=== PATIENT | female | born 1990 | race Caucasian/White ===

== ENCOUNTER → 2020-03-30 | Day surgery (SDC) | payer OTHER ==
[~2020-03-30] MED LIST: LARIN 1.5 MG-31 EACH PO; MINOCYCLINE 5050 M1 PO; NORCO 5-325 TA1 EAC1 PO
[2020-03-30 10:50] LABS: HEMATOCRIT 42.1 % (37.0-47.0)
--- NOTE | 2020-03-31 15:08 | PATH ---
[facility] [address] [place] [address] PATHOLOGY RPT PROCEDURE Name: ERUM NEAL Room: [facility].#: [id number] Admission: 03/30/20 Date of : 86 Discharge: Report #: [id number] Path Case #: [id number] [facility] Accession Number: [id number] . 01 Material submitted: . elbow - LEFT ELBOW MASS. Modifiers: left . 02 Diagnosis: Left elbow mass: - Nodular hemangioma. See comment. (JAMEL:guille; 03/31/2020) [facility] 03/31/2020 [facility]9 Local . 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 (JAMEL:guille; 03/31/2020) . 02 Electronically signed: . Xu Reyna MD, Pathologist NPI- [id number] . 01 Gross description: . The specimen is received in formalin, labeled "Erum Neal, left elbow mass" and consists of 2 fragments of dawkins tissue measuring 0.8 x 0.4 x 0.3 cm in aggregate which are entirely submitted in A1. (SADA; 03/30/2020) JF[facility]/JFQ 03/30/2020 2102 Local . 02 Pathologist provided ICD-10: D18.00 . 02 CPT . 158684 Specimen Comment: A courtesy copy of this report has been sent to [phone], [phone] Specimen Comment: [id number] Specimen Comment: Report sent to / DR ALVAREZ Specimen Comment: A duplicate report has been generated due to demographic updates. Performed at: [address], [place] [id number] MD Jim Horton MD Phone: [phone] Performed at: 02 [facility] [address], [place], [place] [id number] MD Xu Reyna MD Phone: [phone]
--- NOTE | 2020-04-02 13:17 | OP ---
[facility] [address] [place] [address] OPERATIVE REPORT Name: ERUM NEAL Room: [facility]#: [id number] Admission: 03/30/20 Attend Phys: Eric Beckwith Discharge: Date of : 86 Report #: [id number] THIS REPORT FOR: //name// cc: Kaela Elmore Linda J. DO ~ THIS REPORT FOR: //name// CC: Eric Elmore DATE OF SERVICE: 03/30/2020 PREOPERATIVE DIAGNOSIS: Left elbow benign mass, 2 mm. POSTOPERATIVE DIAGNOSIS: Left elbow benign mass, 2 mm. PROCEDURE: Excision of left elbow benign mass, 2 cm. SURGEON: Eric Beckwith MD ANESTHESIA: General. ESTIMATED BLOOD LOSS: Minimal. SPECIMEN: Left elbow mass. DESCRIPTION OF PROCEDURE: After informed consent was obtained, the patient was brought to the operating room and placed supine. SCDs were placed and working, preoperative antibiotics were administered, local monitored anesthesia was induced. The left elbow and arm were prepped and draped in a usual sterile fashion. This was a medial lesion. A 5 mm incision was made over the palpable lesion. Cautery dissection was made down through the subcutaneous tissue. This was a subcutaneous mass. It was firm. It was dissected around with cautery. It was fully excised. I then reapproximated the skin with a 4-0 Monocryl in running subcuticular fashion. Incision was dressed with Dermabond. COMPLICATIONS: None. DISPOSITION: The patient was taken to recovery in satisfactory condition. <ELECTRONICALLY SIGNED> By: Eric Beckwith MD 04/02/20 1317 1323 [id number] Beckwith MD /nt
== END | disposition home or self-care (01) ==
LOC: M.SUR 09:11
PROVIDERS: ATTEND Surgery
DX: D18.01 Hemangioma of skin and subcutaneous tissue (principal); Z79.899 Other long term (current) drug therapy; Z11.59 Encounter for screening for other viral diseases

== ENCOUNTER 2020-04-19 11:00 | Emergency (ER) | payer OTHER ==
[~2020-04-19] VITALS: Ht 162.6 cm; Wt 57.6 kg
[2020-04-19 12:33] VITALS: BP 130/82
== END 2020-04-19 12:34 | disposition home or self-care (01) ==
LOC: M.ERS 11:00
DX: S61.011A Laceration without foreign body of right thumb without damage to nail, initial encounter (principal); Z88.1 Allergy status to other antibiotic agents; W26.0XXA Contact with knife, initial encounter; Y93.89 Activity, other specified; Y92.89 Other specified places as the place of occurrence of the external cause; Y99.8 Other external cause status